=== PATIENT | male | born 1965 | race Two or more races ===

== ENCOUNTER → 2016-12-25 | Outpatient (CLI) | payer BC ==
[~2016-12-25] MED LIST: LORA10CA PO
[2016-12-25 19:59] LABS: ANION GAP 5 MEQ/L (8-16); BLOOD UREA NITROGEN 19 MG/DL (7-18); CALCIUM LEVEL 9.3 MG/DL (8.5-10.1); CARBON DIOXIDE LEVEL 27 MEQ/L (21-32); CHLORIDE LEVEL 106 MEQ/L (98-107); GLOMERULAR FILTRATION RATE > 60.0 (>56); GLUCOSE, FASTING 99 MG/DL (70-105); POTASSIUM SERUM 4.5 MEQ/L (3.5-5.1); SODIUM LEVEL 138 MEQ/L (136-145)
== END ==
LOC: M SMT 12:14
PROVIDERS: ATTEND Urology
DX: R31.0 Gross hematuria (principal)

== ENCOUNTER → 2017-01-01 | Outpatient (CLI) | payer BC ==
[~2017-01-01] MED LIST changes: +ISOVUE-370 76% 100ML VIAL (Q9967) As Ordered ONE
--- NOTE | 2017-01-01 08:52 | REP ---
CT abdomen pelvis without and with IV contrast, multiphase CT urogram scanning: Scan is performed for diaphragms to the pubic symphysis initially without IV contrast, followed by dual phase post IV contrast scanning during the arterial phase and later during the delayed equilibrium/renal excretion phase. There is a tiny barely visible nonobstructive 3 mm right renal calculus at the mid pole. There are no other renal calculi. There is no hydronephrosis or hydroureter. There is a large bladder calculus posteriorly on the left measuring 2.3 by 1.6 cm. The bladder is incompletely distended, therefore evaluation of the bladder wall is insensitive. There is no perinephric stranding. There are no renal masses or cysts. The visualized lung marroquin are unremarkable. The hepatic parenchyma, gallbladder, pancreas and spleen are homogeneous and unremarkable on all phases of the study. The adrenals are unremarkable. The abdominal aorta is unremarkable. There is mild wall thickening and mild enhancement of the distal small bowel loops and of the ascending colon, transverse colon, descending colon and sigmoid colon. This is compatible with enteritis and colitis in the appropriate clinical setting. There is no ascites. No adenopathy. Pelvis: There is no ascites or adenopathy. There are findings in the colonic wall as described compatible with colitis. Impression: There is a large bladder calculus. There is a tiny nonobstructive right renal calculus. There are no renal masses. The study is insensitive for bladder masses as the bladder is incompletely distended. There are findings compatible with enteritis and colitis in the appropriate clinical setting. No ascites or adenopathy Signed by Camacho Sams MD 01/01/2017 08:43 A
== END ==
LOC: M RAD 07:29
PROVIDERS: ATTEND Urology
DX: N20.0 Calculus of kidney (principal); R31.0 Gross hematuria
CPT/HCPCS: 74178; Q9967

== ENCOUNTER → 2017-01-02 | Outpatient (CLI) | payer BC ==
[~2017-01-02] MED LIST changes: -ISOVUE-370 76% 100ML VIAL (Q9967) As Ordered ONE
--- NOTE | 2017-01-02 09:50 | REP ---
Prostate sonography: History: Elevated PSA. Sonographic findings: Trans rectal prostate sonography demonstrates unremarkable seminal vesicles. Prostate gland is heterogeneously enlarged with calcifications and cystic changes noted. Glandular dimensions are measured at 4.6 x 3.9 x 6.5 cm with a calculated glandular volume of 61.0 ml. There is a nodule visible on the left side of the prostate measuring 1.8 cm in greatest diameter. Transrectal sonographic guidance provided to Dr. Gonzáles who performed trans rectal ultrasound guided needle biopsy procedure . Signed by Rigoberto Burch MD 01/02/2017 09:42 A
== END ==
LOC: M SMT PRO 08:17
PROVIDERS: ATTEND Urology
DX: R97.20 Elevated prostate specific antigen [PSA] (principal)
CPT/HCPCS: 76872; 76942; G0416

== ENCOUNTER → 2017-01-16 | Outpatient (CLI) | payer BC ==
[2017-01-16 17:49] LABS: INR 0.94
[2017-01-16 18:01] LABS: MEAN CORPUSCULAR HEMOGLOBIN 30.7 pg (27.0-33.0); MEAN CORPUSCULAR HGB CONC 34.3 g/dl (32.0-36.5); MEAN CORPUSCULAR VOLUME 89.6 fl (80.0-96.0); RED CELL DISTRIBUTION WIDTH 12.3 % (11.5-14.5); WHITE BLOOD COUNT 5.8 K/mm3 (4.0-10.0)
[2017-01-16 18:42] LABS: ANION GAP 9 MEQ/L (8-16); BLOOD UREA NITROGEN 21 MG/DL (7-18); CALCIUM LEVEL 9.2 MG/DL (8.5-10.1); CARBON DIOXIDE LEVEL 26 MEQ/L (21-32); CHLORIDE LEVEL 106 MEQ/L (98-107); CREATININE FOR GFR 1.05 MG/DL (0.70-1.30); GLOMERULAR FILTRATION RATE > 60.0 (>56); GLUCOSE, FASTING 118 MG/DL (70-105); POTASSIUM SERUM 4.1 MEQ/L (3.5-5.1); SODIUM LEVEL 141 MEQ/L (136-145)
== END ==
LOC: M SMT 14:23
PROVIDERS: ATTEND Urology
DX: Z01.818 Encounter for other preprocedural examination (principal); N21.0 Calculus in bladder

== ENCOUNTER 2017-01-18 11:45 | Outpatient (CLI) | payer BC ==
[~2017-01-18] VITALS: Ht 172.7 cm; Wt 81.2 kg
[2017-01-18] MEDS ORDERED: NS 1,000 ML IV ONE (12:00)
[2017-01-18] MEDS ORDERED: PROPOFOL 200 MG/20 ML VIAL As Ordered ONE (12:03)
--- NOTE | 2017-01-18 13:09 | ROOR ---
Patient Name: Will Barragan Procedure Date: 01/18/2017 12:42 PM Date of : 1965 Age: 51 Room: [facility] Gender: Male Note Status: Finalized Procedure: Colonoscopy Indications: Screening for colorectal malignant neoplasm Providers: Humberto Montano Jr, MD Referring MD: Santana Velásquez Requesting Provider: Medicines: Propofol per Anesthesia Complications: No immediate complications. Procedure: Pre-Anesthesia Assessment: - Prior to the procedure, a History and Physical was performed, and patient medications and allergies were reviewed. The patient is competent. The risks and benefits of the procedure and the sedation options and risks were discussed with the patient. All questions were answered and informed consent was obtained. Patient identification and proposed procedure were verified by the physician and the nurse in the pre-procedure area and in the procedure room. Mental Status Examination: alert and oriented. Airway Examination: normal oropharyngeal airway and neck mobility. Respiratory Examination: clear to auscultation. CV Examination: normal. ASA Grade Assessment: II - A patient with mild systemic disease. After reviewing the risks and benefits, the patient was deemed in satisfactory condition to undergo the procedure. The anesthesia plan was to use moderate sedation / analgesia (conscious sedation). Immediately prior to administration of medications, the patient was re-assessed for adequacy to receive sedatives. The heart rate, respiratory rate, oxygen saturations, blood pressure, adequacy of pulmonary ventilation, and response to care were monitored throughout the procedure. The physical status of the patient was re-assessed after the procedure. The Colonoscope was introduced through the anus and advanced to the cecum, identified by appendiceal orifice and ileocecal valve. The colonoscopy was performed without difficulty. The patient tolerated the procedure well. The quality of the bowel preparation was adequate and good. Findings: The rectum, recto-sigmoid colon, sigmoid colon, descending colon, transverse colon, ascending colon, cecum, appendiceal orifice and ileocecal valve appeared normal. Impression: - The rectum, recto-sigmoid colon, sigmoid colon, descending colon, transverse colon, ascending colon, cecum, appendiceal orifice and ileocecal valve are normal. - No specimens collected. Recommendation: - Discharge patient to home (ambulatory). - Repeat colonoscopy in 10 years for screening purposes. Humberto Montano MD Humberto Montano Jr, MD 01/18/2017 1:09:15 PM This report has been signed electronically. Number of Addenda: 0 Note Initiated On: 01/18/2017 12:42 PM Estimated Blood Loss: Estimated blood loss: none.
[2017-01-18] MEDS ORDERED: LIDOCAINE 2% INJ 100 MG/5 ML SDV (FOR ANES.) As Ordered ONE (13:25)
[2017-01-18 13:30] VITALS: BP 116/75
== END 2017-01-18 13:47 | disposition home or self-care (01) ==
LOC: M OPP 11:45
PROVIDERS: ATTEND Surgery
DX: Z12.11 Encounter for screening for malignant neoplasm of colon (principal); N40.1 Benign prostatic hyperplasia with lower urinary tract symptoms; Z79.899 Other long term (current) drug therapy

== ENCOUNTER → 2017-01-25 | Outpatient (REF) | payer BC | LOC: M SMT 17:31 | PROVIDERS: ATTEND Urology | DX: Z01.818 Encounter for other preprocedural examination (principal); N21.0 Calculus in bladder; N39.0 Urinary tract infection, site not specified ==

== ENCOUNTER 2017-02-02 06:02 | Day surgery (SDC) | payer BC ==
[~2017-02-02] VITALS: Ht 170.2 cm; Wt 78.5 kg
[2017-02-02] MEDS ORDERED: LIDOCAINE 1% SDV 5 ML VIAL SQ ONE (06:15)
[2017-02-02] MEDS ORDERED: LR 1,000 ML IV SCH ×2 (06:15→09:15)
[2017-02-02] MEDS ORDERED: fentaNYL 100 MCG/2 ML INJECTION (J3010) As Ordered ONE (07:18)
[2017-02-02] MEDS ORDERED: LIDOCAINE 2% INJ 100 MG/5 ML SDV (FOR ANES.) As Ordered ONE (07:18)
[2017-02-02] MEDS ORDERED: MIDAZOLAM INJ 2 MG/2 ML VIAL (J2250) As Ordered ONE (07:18)
[2017-02-02] MEDS ORDERED: PROPOFOL 200 MG/20 ML VIAL As Ordered ONE (07:18)
[2017-02-02] MEDS ORDERED: ONDANSETRON 4MG/2ML VIAL (J2405) As Ordered ONE (07:50)
[2017-02-02] MEDS ORDERED: dexameTHASONE 4 MG/ML 1ML VIAL (J1100) As Ordered ONE (07:50)
[2017-02-02] MEDS ORDERED: HYDROmorphone HCL 2 MG/ML 1ML VIAL (J1170) As Ordered ONE (08:25)
[2017-02-02] MEDS ORDERED: METOCLOPRAMIDE INJ 10MG/2ML VIAL (J2765) IV PRN (09:15)
[2017-02-02] MEDS ORDERED: fentaNYL 100 MCG/2 ML INJECTION (J3010) IV PRN (09:15)
[2017-02-02] MEDS ORDERED: PERCOCET 5MG/325MG TAB PO PRN (09:15)
[2017-02-02] MEDS ORDERED: ACETAMINOPHEN TAB 650MG DOSE (2X325MG) PO PRN (09:15)
[2017-02-02] MEDS ORDERED: ONDANSETRON 4MG/2ML VIAL (J2405) IV PRN (09:15)
[2017-02-02] MEDS ORDERED: MEPERIDINE INJ 25 MG/ML VIAL (J2175) IV PRN (09:15)
[2017-02-02 10:45] VITALS: BP 130/72
--- NOTE | 2017-02-05 05:23 | RO ---
DATE OF PROCEDURE: 02/02/2017 PREPROCEDURE DIAGNOSIS: Bladder stone. POSTPROCEDURE DIAGNOSIS: Bladder stone. OPERATIVE PROCEDURE: Cystoscopy, laser cystolitholapaxy. SURGEON: Devang Gonzáles MD RETURN TO SERVICE INSPECTOR: None. ANESTHESIA: General. OPERATIVE INDICATIONS: This is a 51-year-old male who was found to have a 2.3 cm bladder stone. It was recommended that he brought to the operating room today for the above listed procedure. DESCRIPTION OF PROCEDURE: The patient was brought to the operating room, and general anesthesia was induced. Prophylactic antibiotics were infused. He was then placed in a dorsal lithotomy position, prepped and draped in the usual sterile fashion. At this point, a rigid cystoscope was inserted into the urethral meatus and advanced to the bladder. Of note, the patient had a very large stone at the base of the bladder. The stone was then fragmented into several smaller pieces using a 1000 micron laser fiber. Once I fragmented the stone into several pieces, all the pieces were removed using an Handshake evacuator. I then confirmed that all the pieces were removed and examined the bladder, and there were no abnormalities seen. Of note, the patient did have bilobar prostatic hyperplasia with a somewhat high riding bladder neck. Other than that his urethra was unremarkable. At this point, the cystoscope was removed. An #18[place] Os[place] catheter was inserted to the bladder. The balloon was filled with 10 mL of sterile water and then, the catheter was connected to gravity drainage. This marked conclusion of the procedure. The patient was then taken out of dorsal lithotomy position, awakened from anesthesia and transported to the recovery room in stable condition. ESTIMATED BLOOD LOSS: Zero mL. COMPLICATIONS: None. SPECIMENS: Bladder stones. PLAN: The patient will has his catheter removed in the recovery room. He will followup in clinic in a few weeks for a postoperative visit.
== END 2017-02-02 11:13 | disposition home or self-care (01) ==
LOC: M SDC 06:02
PROVIDERS: ATTEND Urology
DX: N21.0 Calculus in bladder (principal); J30.2 Other seasonal allergic rhinitis; N40.0 Benign prostatic hyperplasia without lower urinary tract symptoms
CPT/HCPCS: 52317; 82360; 88300; C1769; J0690; J1100; J1170; J2250; J2405; J3010

== ENCOUNTER → 2017-03-27 | Outpatient (CLI) | payer BC ==
[2017-03-29 00:08] LABS: PSA % FREE 15.1 % (.); PSA FREE 1.06 ng/mL
== END ==
LOC: M SMT 08:55
PROVIDERS: ATTEND Urology
DX: R97.20 Elevated prostate specific antigen [PSA] (principal)

== ENCOUNTER → 2017-10-03 | Outpatient (CLI) | payer BC ==
[2017-10-05 14:19] LABS: PSA % FREE 12.6 % (.); PSA FREE 0.67 ng/mL; PSA TOTAL 5.3 ng/mL (0.0-4.0)
== END ==
LOC: M SMT 12:56
DX: R97.20 Elevated prostate specific antigen [PSA] (principal)
CPT/HCPCS: 84154

== ENCOUNTER → 2018-04-04 | Outpatient (CLI) | payer BC ==
[2018-04-05 14:21] LABS: PSA FREE 0.72 ng/mL; PSA TOTAL 4.8 ng/mL (0.0-4.0)
== END ==
LOC: M SMT 11:27
DX: R97.20 Elevated prostate specific antigen [PSA] (principal)
CPT/HCPCS: 84154

== ENCOUNTER → 2018-09-20 | Outpatient (CLI) | payer BC ==
[2018-09-24 08:10] LABS: PSA FREE 0.7 ng/mL; PSA TOTAL 5.4 ng/mL (0.0-4.0)
== END ==
LOC: M SMT 13:07
PROVIDERS: ATTEND Urology
DX: R97.20 Elevated prostate specific antigen [PSA] (principal)

== ENCOUNTER → 2019-04-09 | Outpatient (CLI) | payer BC | LOC: M SMT 13:03 | PROVIDERS: ATTEND Urology | DX: R97.20 Elevated prostate specific antigen [PSA] (principal) ==

== ENCOUNTER → 2019-04-11 | Outpatient (REF) | payer BC ==
[2019-04-11 13:35] LABS: APPEARANCE, URINE CLEAR (CLEAR); BACTERIA, URINE AUTO 3+ (NEGATIVE); BILIRUBIN, URINE AUTO NEGATIVE (NEGATIVE); BLOOD, URINE BLOOD 1+ (NEGATIVE); CALCIUM OXALATE CRYSTALS SMALL; COLOR, URINE YELLOW (YELLOW); GLUCOSE, URINE (UA) AUTO NEGATIVE (NEGATIVE); KETONE, URINE AUTO NEGATIVE (NEGATIVE); LEUKOCYTE ESTERASE, URINE AUTO 2+ (NEGATIVE); MUCUS, URINE SMALL (NEGATIVE); NITRITE, URINE AUTO POSITIVE (NEGATIVE); PROTEIN, URINE AUTO NEGATIVE (NEGATIVE); RBC, URINE AUTO 3 /HPF (0-3); SQUAMOUS EPITHELIAL CELL UR AU 0 /HPF (0-6); UROBILINOGEN, URINE AUTO 0.2 mg/dL (0.0-2.0); WBC, URINE AUTO 50 /HPF (0-3)
== END ==
LOC: M SMT 12:39
PROVIDERS: ATTEND Urology
DX: R97.20 Elevated prostate specific antigen [PSA] (principal)

== ENCOUNTER → 2019-05-21 | Outpatient (CLI) | payer BC | LOC: M PLALAB 13:01 | PROVIDERS: ATTEND Urology | DX: N39.0 Urinary tract infection, site not specified (principal); R97.20 Elevated prostate specific antigen [PSA] ==

== ENCOUNTER → 2019-07-23 | Outpatient (CLI) | payer BC ==
--- NOTE | 2019-07-24 16:19 | REP ---
Clinical: Recurrent urinary tract infection. Technique: Axial noncontrast images from the lung bases to the pubic symphysis with coronal and sagittal re-formations. Comparison: 01/01/2017. Findings: Lung bases are clear. Visualized heart and pericardium grossly normal. Liver, spleen, pancreas, gallbladder, and bilateral adrenal glands are normal for noncontrast evaluation. The kidneys demonstrate few bilateral 1 mm nonobstructing nephroliths without perinephric stranding, hydroureteronephrosis or obstructing ureteral calculi. The enteric system is without obstruction or acute inflammatory process. Normal terminal ileum and appendix are identified in the right lower quadrant. Few scattered sigmoid diverticula noted without acute diverticulitis. The bladder appears to extend towards the right inguinal canal with possible early herniation. The prostate gland is prominent and measures roughly 5.4 cm maximal transverse diameter. No pelvic fluid. No ascites. No free air. No adenopathy. Bowel aorta without aneurysm. Musculoskeletal structures demonstrate age-related changes and right L5 spondylolysis without spondylolisthesis. Impression: 1. Few nonobstructing bilateral 1 mm nephroliths without further urinary tract pathology 2. The bladder appears to extend and approach the right inguinal canal suspicious for possible early hernia formation. 3. Prostatomegaly. 4. Chronic L5 spondylolysis without spondylolisthesis. Electronically Signed by Hima Camarena MD 07/24/2019 04:10 P
== END ==
LOC: M RAD 15:07
PROVIDERS: ATTEND Urology
DX: N39.0 Urinary tract infection, site not specified (principal); N20.0 Calculus of kidney

== ENCOUNTER → 2020-07-09 | Outpatient (REF) | payer BC ==
[2020-07-09 14:40] LABS: ALT/SGPT 31 U/L (12-78); BLOOD UREA NITROGEN 24 MG/DL (7-18); CALCIUM LEVEL 9.2 MG/DL (8.5-10.1); CARBON DIOXIDE LEVEL 28 MEQ/L (21-32); CHLORIDE LEVEL 106 MEQ/L (98-107); CHOLESTEROL LEVEL 182 MG/DL (<200); CHOLESTEROL RISK RATIO 3.714 (<5); CREATININE FOR GFR 1.16 MG/DL (0.70-1.30); GLOMERULAR FILTRATION RATE > 60.0 (>56); GLUCOSE, FASTING 101 MG/DL (70-100); HDL CHOLESTEROL 49 MG/DL (>40); LDL CHOLESTEROL 122 MG/DL (<100); NON-HDL-C 133 MG/DL; POTASSIUM SERUM 4.2 MEQ/L (3.5-5.1); SODIUM LEVEL 140 MEQ/L (136-145); TOTAL PROTEIN 6.9 GM/DL (6.4-8.2); TRIGLYCERIDES LEVEL 57 MG/DL (<150)
== END ==
LOC: M LAB REF 11:17
PROVIDERS: ATTEND Internal Medicine
DX: Z13.220 Encounter for screening for lipoid disorders (principal); R73.01 Impaired fasting glucose; Z00.01 Encounter for general adult medical examination with abnormal findings

== ENCOUNTER → 2020-09-22 | Outpatient (REF) | payer BC ==
[2020-09-24 23:06] LABS: PSA % FREE 12.1 % (.); PSA FREE 0.94 ng/mL; PSA TOTAL 7.8 ng/mL (0.0-4.0)
== END ==
LOC: M PLALAB 16:35
PROVIDERS: ATTEND Urology
DX: R97.20 Elevated prostate specific antigen [PSA] (principal)

== ENCOUNTER → 2021-04-19 | Outpatient (CLI) | payer BC ==
[2021-04-21 23:12] LABS: PSA % FREE 12.7 % (.); PSA FREE 1.17 ng/mL; PSA TOTAL 9.2 ng/mL (0.0-4.0)
== END ==
LOC: M PLALAB 12:47
PROVIDERS: ATTEND Urology
DX: R97.20 Elevated prostate specific antigen [PSA] (principal)

== ENCOUNTER → 2021-10-04 | Outpatient (CLI) | payer OTHER ==
[2021-10-05 23:08] LABS: PSA % FREE 12.3 % (.); PSA FREE 0.87 ng/mL; PSA TOTAL 7.1 ng/mL (0.0-4.0)
== END ==
LOC: M PLALAB 08:47
PROVIDERS: ATTEND Urology
DX: R97.20 Elevated prostate specific antigen [PSA] (principal)

== ENCOUNTER → 2022-04-27 | Outpatient (CLI) | payer OTHER ==
[2022-05-01 23:07] LABS: PSA % FREE 13.9 % (.); PSA FREE 0.92 ng/mL; PSA TOTAL 6.6 ng/mL (0.0-4.0)
== END ==
LOC: M PLALAB 16:34
PROVIDERS: ATTEND Urology
DX: R97.20 Elevated prostate specific antigen [PSA] (principal)

== ENCOUNTER → 2022-09-27 | Outpatient (CLI) | payer OTHER | LOC: M PLALAB 12:54 | PROVIDERS: ATTEND Urology | DX: R97.20 Elevated prostate specific antigen [PSA] (principal) ==

== ENCOUNTER → 2023-04-11 | Outpatient (CLI) | payer OTHER | LOC: M PLALAB 15:19 | PROVIDERS: ATTEND Urology | DX: R97.20 Elevated prostate specific antigen [PSA] (principal) ==

== ENCOUNTER → 2023-10-04 | Outpatient (CLI) | payer OTHER ==
[2023-10-07 15:06] LABS: PSA % FREE 14.2 % (.); PSA FREE 1.22 ng/mL; PSA TOTAL 8.6 ng/mL (0.0-4.0)
== END ==
LOC: M PLALAB 15:34
PROVIDERS: ATTEND Urology
DX: R97.20 Elevated prostate specific antigen [PSA] (principal)

== ENCOUNTER → 2024-05-05 | Outpatient (CLI) | payer OTHER ==
[2024-05-07 17:17] LABS: PSA FREE 0.6 ng/mL; PSA TOTAL 3.7 ng/mL (< OR = 4.0)
== END ==
LOC: M PLALAB 14:14
PROVIDERS: ATTEND Urology
DX: R97.20 Elevated prostate specific antigen [PSA] (principal)

== ENCOUNTER → 2024-09-30 | Outpatient (CLI) | payer OTHER ==
[2024-10-02 15:07] LABS: PSA FREE 0.6 ng/mL; PSA TOTAL 3.9 ng/mL (< OR = 4.0)
== END ==
LOC: M PLALAB 14:25
PROVIDERS: ATTEND Urology
DX: R97.20 Elevated prostate specific antigen [PSA] (principal)

== ENCOUNTER → 2025-04-21 | Outpatient (CLI) | payer OTHER ==
[2025-04-23 11:44] LABS: PSA % FREE 13.0 % (calc) (>25); PSA FREE 0.5 ng/mL; PSA TOTAL 3.8 ng/mL (< OR = 4.0)
== END ==
LOC: M PLALAB 12:55
PROVIDERS: ATTEND Urology
DX: R97.20 Elevated prostate specific antigen [PSA] (principal)

== ENCOUNTER → 2025-05-29 | Outpatient (CLI) | payer OTHER | LOC: M WUC 08:05 | DX: M25.571 Pain in right ankle and joints of right foot (principal) ==